=== PATIENT | male | born 1950 | race Caucasian/White ===

== ENCOUNTER 2019-04-04 14:14 | Emergency (ER) | payer OTHER ==
[~2019-04-04] VITALS: Ht 182.9 cm; Wt 86.2 kg
[2019-04-04] MEDS ORDERED: CIPRO500 MG/5 M (14:34)
[2019-04-04] MEDS ORDERED: DICLOFENAC SODIU5 ML (14:34)
[2019-04-04] MEDS ORDERED: FOSINOPRIL SODI40 MG (14:35)
[2019-04-04] MEDS ORDERED: [UNRECOGNIZED DRUG - OTHER] (14:35)
== END 2019-04-04 18:23 | disposition home or self-care (01) ==
LOC: ER 14:14
DX: L03.113 Cellulitis of right upper limb (principal)

== ENCOUNTER 2020-11-20 09:10 | Outpatient (CLI) | payer OTHER ==
[~2020-11-20 09:10] MED LIST: CIPRO500 MG/5 M; DICLOFENAC SODIU5 ML; FOSINOPRIL SODI40 MG; [UNRECOGNIZED DRUG - OTHER]
== END 2020-11-20 09:19 | disposition home or self-care (01) ==
LOC: RAD 09:10
PROVIDERS: ATTEND Specialist
DX: J45.998 Other asthma (principal)

== ENCOUNTER 2021-01-16 08:27 | Outpatient (CLI) | payer OTHER | END 2021-01-16 08:34 | disposition home or self-care (01) | LOC: RAD 08:27 | PROVIDERS: ATTEND Ophthalmology | DX: I10 Essential (primary) hypertension (principal) ==

== ENCOUNTER 2021-04-09 07:42 | Outpatient (CLI) | payer OTHER | END 2021-04-09 07:53 | disposition home or self-care (01) | LOC: SONOGRAMA 07:42 | DX: K76.0 Fatty (change of) liver, not elsewhere classified (principal); Q61.01 Congenital single renal cyst ==

== ENCOUNTER 2021-06-25 08:00 | Outpatient (CLI) | payer OTHER | END 2021-06-25 08:30 | disposition home or self-care (01) | LOC: PPH VACUNA 08:00 | PROVIDERS: ATTEND Emergency Medicine Pediatric Emergency Medicine | DX: Z23 Encounter for immunization (principal) ==

== ENCOUNTER 2021-06-26 08:48 | Outpatient (CLI) | payer OTHER | END 2021-06-26 08:55 | disposition home or self-care (01) | LOC: RAD 08:48 | PROVIDERS: ATTEND Specialist | DX: J45.998 Other asthma (principal) ==

== ENCOUNTER 2021-07-16 07:27 | Outpatient (CLI) | payer OTHER | END 2021-07-16 07:32 | disposition home or self-care (01) | LOC: NUCLEAR 07:27 | PROVIDERS: ATTEND Internal Medicine Cardiovascular Disease | DX: I25.10 Atherosclerotic heart disease of native coronary artery without angina pectoris (principal); I25.9 Chronic ischemic heart disease, unspecified ==

== ENCOUNTER 2021-12-06 08:11 | Outpatient (CLI) | payer OTHER | END 2021-12-06 08:31 | disposition home or self-care (01) | LOC: SONOGRAMA 08:11 | PROVIDERS: ATTEND Internal Medicine Gastroenterology | DX: R10.84 Generalized abdominal pain (principal) ==

== ENCOUNTER 2022-12-24 08:05 | Outpatient (CLI) | payer OTHER | END 2022-12-24 08:30 | disposition home or self-care (01) | LOC: SONOGRAMA 08:05 | PROVIDERS: ATTEND Internal Medicine Gastroenterology | DX: R10.9 Unspecified abdominal pain (principal) ==

== ENCOUNTER 2023-06-01 11:17 | Outpatient (CLI) | payer OTHER | END 2023-06-01 11:27 | disposition home or self-care (01) | LOC: SONOGRAMA 11:17 | PROVIDERS: ATTEND Internal Medicine Gastroenterology | DX: R10.9 Unspecified abdominal pain (principal) ==

== ENCOUNTER 2023-06-04 08:07 | Outpatient (CLI) | payer OTHER | END 2023-06-04 10:28 | disposition home or self-care (01) | LOC: TOM 08:07 | PROVIDERS: ATTEND Internal Medicine Gastroenterology | DX: K57.92 Diverticulitis of intestine, part unspecified, without perforation or abscess without bleeding (principal) | CPT/HCPCS: 74177; Q9965 ==

== ENCOUNTER 2023-09-03 09:59 | Outpatient (CLI) | payer OTHER | END 2023-09-03 10:09 | disposition home or self-care (01) | LOC: TOM 09:59 | PROVIDERS: ATTEND Internal Medicine Gastroenterology | DX: K57.92 Diverticulitis of intestine, part unspecified, without perforation or abscess without bleeding (principal) ==

== ENCOUNTER 2024-06-08 08:35 | Outpatient (CLI) | payer OTHER ==
[~2024-06-08 08:35] MED LIST changes: +GABAPENTIN600 MG; +HORIZANT300 MG PO; +MILLIPRED5 MG PO; +RAYOS5 MG; +ZESTRIL5 MG PO; +ZETIA10 MG PO
== END 2024-06-08 08:53 | disposition home or self-care (01) ==
LOC: RAD 08:35
PROVIDERS: ATTEND Physical Medicine & Rehabilitation
DX: M54.59 Other low back pain (principal); M25.511 Pain in right shoulder

== ENCOUNTER 2024-08-08 07:34 | Outpatient (CLI) | payer OTHER | END 2024-08-08 07:36 | disposition home or self-care (01) | LOC: SONOGRAMA 07:34 | DX: K76.0 Fatty (change of) liver, not elsewhere classified (principal) ==

== ENCOUNTER 2024-09-19 07:22 | Outpatient (CLI) | payer OTHER | END 2024-09-19 07:24 | disposition home or self-care (01) | LOC: SONOGRAMA 07:22 | DX: R74.01 Elevation of levels of liver transaminase levels (principal) ==